=== PATIENT | male | born 1960 | race African-American/Black ===

== ENCOUNTER 2019-12-17 12:11 | Outpatient (CLI) | payer OTHER, SELFPAY ==
--- NOTE | ~2019-12-17 | US_ITS ---
EXAMINATION: US soft tissue groin RT, US soft tissue groin LT DATE: 12/17/2019 13:37 INDICATION: Bilateral inguinal pain TECHNIQUE: Multiple grayscale and Doppler ultrasound images of the left and right inguinal regions we re obtained. This includes real-time imaging with Valsalva. COMPARISON: None FINDINGS: Normal sized left inguinal lymph node with prominent central fatty hilum. No pathologically enlarged lymphadenopathy at the left or right inguinal regions. No inguinal hernia identified. No abnormal mas ses or fluid collections. IMPRESSION: 1. Normal ultrasound of the left and right groin. Reviewed, dictated and finalized at location A. IMPRESSION: 1. Normal ultrasound of the left and right groin.
== END 2019-12-17 12:12 | disposition home or self-care (01) ==
LOC: ANHIMG 12:18
PROVIDERS: PCP Family Medicine; Visit Provider Family Medicine
DX: R10.2 Pelvic and perineal pain (principal)
CPT/HCPCS: 76882

== ENCOUNTER 2020-12-01 17:49 | Emergency (ER) | payer OTHER, SELFPAY ==
--- NOTE | ~2020-12-01 | XR_ITS ---
EXAMINATION: XR knee RT min 4V EXAM DATE: 12/01/2020 18:15 INDICATION: Twisted rt knee, pain. Initial encounter. TECHNIQUE: Right knee frontal, crosstable lateral, orthogonal oblique projections for interpretation . There is no prior study for comparison. FINDINGS: There is advanced arthritis at the right proximal tibiofibular articulation. Discontinuit y of the inferior aspect of the patella, likely an acute horizontal fracture through it. The majority of the patella appears high in position, probably about a centimeter of distraction. Unusual that th ere is no appreciable joint effusion or hemarthrosis to this. There is moderate tricompartmental prim luis osteoarthritis. IMPRESSION: Probable acute horizontal fracture lower pole right patella, with some distraction and p atella izabela. No joint effusion. Typically joint effusion is present with acute knee fracture. Please clinically correlate. Reviewed, dictated and finalized at location A. IMPRESSION: Probable acute horizontal fracture lower pole right patella, with some distraction and patella izabela. No joint effusion. Typically joint effusion is present with acute knee fracture. Please clinically correlate.
--- NOTE | 2020-12-01 18:02 | ED.LOWEXIN ---
HPI - Extremity Injury (Lower) General Chief Complaint: Extremity Problem,Nontraumatic Stated Complaint: Right Knee Pain Time Seen by Provider: 12/01/20 18:02 Source: patient and RN notes reviewed Mode of arrival: ambulatory Limitations: no limitations History of Present Illness HPI Narrative: 60-year-old male presents to the [facility] with complaints of right knee pain for the last 10 days. Patient states that he started walking laps for his health about 5 months ago. Pain in the right knee started approximately 10 days ago. Denies any injury. Related Data Allergies Allergy/AdvReac Type Severity Reaction Status Date / Time No Known Allergies Allergy Verified 12/01/20 18:20 Review of Systems Review of Systems: All systems reviewed & are unremarkable except as noted in HPI and below Constitutional: Constitutional: Reports no additional constitutional complaints, Denies chills and Denies fever(s) Eyes: Eyes: Reports no additional eye complaints ENT: Reports system reviewed and no additional complaints, except as documented Cardiovascular: Cardiovascular: Reports no additional cardiovascular complaints and Denies chest pain Respiratory: Respiratory: Reports no additional respiratory complaints, Denies cough and Denies dyspnea Musculoskeletal: Musculoskeletal: Reports as per HPI, Reports arthralgias (right knee) and Reports joint swelling (right knee) Integumentary/Breasts: Skin/Breast: Reports system reviewed and no additional complaints, except as docu, Denies pruritus and Denies rash Neurologic: Reports system reviewed and no additional complaints, except as documented, Denies dizziness, Denies headache(s), Denies focal weakness, Denies numbness and Denies weakness Psychiatric: Psychiatric: Reports no additional psychiatric complaints Allergic/Immunologic: Allergic/Immunologic: Reports no additional allergic/immunologic complaints PMFSH Comments At the time of my signature, I reviewed and agree with the nursing past medical, surgical, social, and family history. There is no relevant family history pertinent to the patient complaint. Exam Const: General: healthy appearing, no acute distress and alert Nutritional Appearance: well nourished Orientation/consciousness: patient oriented x3 Limitations: no limitations HENMT: Head: normal to inspection Eyes: Conjunctivae: conjunctivae normal Pupils: Equal, round and reactive pupils present Neck: Neck: normal visual inspection, no lymphadenopathy and no meningeal signs Chest: Chest palpation & inspection: normal inspection of the chest Resp: Effort & Inspection: normal respiratory effort and no use of accessory muscles Auscultation: clear to auscultation bilaterally, no crackles, no rales, no rhonchi and no wheezes Cardio: Rate: regular rate Rhythm: regular rhythm Back/Spine/Pelvis: Back: no CVA tenderness Skin: General skin exam: normal color Rashes: no rashes Wounds: no wounds Neuro: General: patient oriented x3, moves all extremities, no meningeal signs and no focal motor deficits Speech: normal speech Gait exam (Neuro): Normal gait present Extrem: Right lower extremity: knee Details: tenderness Location: of the patella, swelling Location: of the patella (Generalized anterior knee, minor swelling) and normal ROM Left lower extremity: normal to inspection Psych: Appearance: grossly normal and well kempt Mental Status: mental status grossly normal Affect: normal affect Attitude: cooperative Thought content: Yes Normal thought content present Course Course Emergency Course: Discharge instructions reviewed with patient, as well as provided in writing per nursing staff. The instructions also include specific and strict return/GO TO THE ER as well as f/u information. All questions have been answered, and the patient deny any further questions with discharge and discharge plan. Vital Signs Vital signs: Vital Signs Temperature 98.0 F 12/01/20 18:03
[2020-12-01 18:03] VITALS: BP 139/81; PULSE 74; RESP 16; TEMP 36.7; O2SAT 99
== END 2020-12-01 18:58 | disposition home or self-care (01) ==
PROVIDERS: Emergency Provider Nurse Practitioner; PCP Family Medicine
DX: S82.001A Unspecified fracture of right patella, initial encounter for closed fracture (principal); X58.XXXA Exposure to other specified factors, initial encounter
CPT/HCPCS: 73564; 99214; G0463; L1830

== ENCOUNTER 2021-01-29 08:00 | Outpatient (RCR) | payer OTHER, SELFPAY ==
--- NOTE | 2021-01-21 06:48 | PTOPEVAL ---
Thank you for referring Reza Henley to [facility].? The patient is scheduled to be seen for therapy? 2 x/week for 5 weeks. Please review, sign, date and return this plan of care CIPRIANO. I agree with and certify that the following plan of care is medically necessary. Referring Physician Date Attending Provider: Bong Goldberg MD Diagnosis right knee Onset 11/21/20 Additional Evaluation Detail He did get in the hot tub a few time for 45 min for improved soreness to 05/25. 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 Prior to July of 2019 he was working out at the gym with use of TM for walking and running. Subjective Information He has been working out Query Text:As Reported By Patient/ outdoor track for a few months. Family He started a light jog for 1/2 lap intervals when he noticed increased knee pain. Denies any injury to the right knee. Denies fall or hitting the knee on object. He reports limitations with walking, steps, squating motion, donning shoes/socks, prolonged standing and sitting . Diagnostic Tests X-Rays For This Problem Yes: There is moderate tricompartmental primary osteoarthritis. Pain Assessment Right Knee(s) Reported Pain Level 5 Pain Description Soreness,Tightness Pain Frequency Continuous Lowest Pain Intensity 1 Greatest Pain Intensity 7 Pain Aggravating Factors ADL's,Exercise/Activity, Sitting Lower Extremity Range of Motion Knee Range of Motion Right Knee Flexion Range of Motion - Active 120 Knee Extension Range of Motion - Active 0 Query Text: Knee Range of Motion Comments left knee flex: 130 dg Lower Extremity Muscle Strength Testing Hip Strength Right Hip Flexion Strength 5 Normal Hip Extension Strength 5 Normal Hip Abduction Strength 3 Fair Knee Strength Right Knee Flexion Strength 5 Normal Knee Extension Strength 5 Normal Muscle Length Testing Muscle Length Testing Two-Joint Hip Flexor Shortened Muscles Short (R) Iliopsoas,Short (L) Iliopsoas,Short (R) Rectus
--- NOTE | 2021-01-22 14:16 | PCPTNOTE ---
Patient did not show up for scheduled appointment this date. Called and left message regarding visit today.
--- NOTE | 2021-01-26 15:11 | PCPTNOTE ---
Patient did not show up for scheduled appointment this date. Left message regarding no show. Reminded him of his next visit. If no show again, will plan to DC.
--- NOTE | 2021-02-02 13:48 | PCPTNOTE ---
Patient called & cancelled scheduled appointment this date due to being in to much pain.
--- NOTE | 2021-03-02 07:53 | PCPTNOTE ---
Admitting Provider: Attending Provider: Bong Goldberg MD Patient:Reza Henley Date of :1960 Patient has not returned for any further treatments since 01/29/2021, therefore he will be discharged at this time. Patient?s initial visit was on 01/20/2021 12:30 and he had a total of 2 visits. The goals have been not met at this time due to limited visits attended. Thank you for referring this patient to [facility]. Please review, sign, date and return this discharge summary CIPRIANO. I have been updated about the patient's current status and I agree with discharge from the above service at this time. Referring Physician Date
== END 2021-03-02 11:44 | disposition home or self-care (01) ==
LOC: ANHPT 08:00
PROVIDERS: PCP Family Medicine; Visit Provider Orthopaedic Surgery
DX: M25.561 Pain in right knee (principal)
CPT/HCPCS: 97014; 97110; 97112; 97162; G0283